=== PATIENT | female | born 1955 | race Two or more races ===

== ENCOUNTER 2019-08-10 08:12 | Outpatient (CLI) | payer OTHER | END 2019-08-10 08:27 | disposition home or self-care (01) | LOC: NUCLEAR 08:12 | DX: E04.1 Nontoxic single thyroid nodule (principal) | CPT/HCPCS: 78013; A9512 ==

== ENCOUNTER 2019-08-13 08:46 | Outpatient (CLI) | payer OTHER | END 2019-08-13 08:48 | disposition home or self-care (01) | LOC: SONOGRAMA 08:46 | DX: E04.2 Nontoxic multinodular goiter (principal) ==